=== PATIENT | female | born 1965 | race Caucasian/White ===

== ENCOUNTER → 2018-04-13 | Outpatient (CLI) | payer OTHER ==
[~2018-04-13] MED LIST: Advil200 M1 PO; DULO60; GABA100 PO; IRON; LOMAIRA8 MG PO; PARO30 PO
== END | disposition home or self-care (01) ==
LOC: LAB SHORT 13:57 → PLD 13:57
DX: D48.5 Neoplasm of uncertain behavior of skin (principal)
CPT/HCPCS: 88304

== ENCOUNTER 2020-10-24 18:00 | Emergency (ER) | payer OTHER ==
[~2020-10-24] VITALS: Ht 170.2 cm; Wt 113.4 kg
[2020-10-24] MEDS ORDERED: BENZ100A PO (18:53)
[2020-10-24] MEDS ORDERED: ONDA4ODT MM (18:53)
[2020-10-24] MEDS ORDERED: DECADRON4 M1 PO (18:53)
== END 2020-10-24 19:21 | disposition home or self-care (01) ==
LOC: ER 18:00
DX: U07.1 COVID-19 (principal); Z79.899 Other long term (current) drug therapy
CPT/HCPCS: 99285; A9270; J1100

== ENCOUNTER → 2021-01-01 | Outpatient (CLI) | payer OTHER ==
[~2021-01-01] MED LIST changes: +BENZ100A PO; +DECADRON4 M1 PO; +ONDA4ODT MM
== END | disposition home or self-care (01) ==
LOC: LAB 08:28 → LAB SHORT 08:28
DX: L72.11 Pilar cyst (principal)
CPT/HCPCS: 88304

== ENCOUNTER 2022-06-22 06:25 | Day surgery (SDC) | payer OTHER ==
[~2022-06-22] VITALS: Ht 170.2 cm; Wt 111.0 kg
[2022-06-22] VITALS (7 sets, daily range): BP systolic 116–150; BP diastolic 77–128
[~2022-06-22 06:25] MED LIST changes: +BUPR150ER PO; +DULO60 PO; +METF500 PO; +MULVITA PO
--- NOTE | 2022-06-22 09:01 | NUR ---
PT BACK TO RECOVERY ROOM VIA RECLINER POST PROCEDURE. AWAKE AND ALERT, DENIES ANY PAIN OR DISCOMFORT. RIGHT RADIAL SITE WITH TR BAND AND SPLINT IN PLACE. NO BLEEDING OR SWELLING NOTED AT SITE. VSS, CALL LIGHT IN REACH.
--- NOTE | 2022-06-22 09:28 | NUR ---
PT EATING BREAKFAST, VISITING WITH PARENTS. DENIES CURRENT NEEDS. VSS, CALL LIGHT IN REACH. RIGHT RADIAL SITE REMAINS CLEAN AND DRY, NO BLEEDING OR SWELLING.
--- NOTE | 2022-06-22 10:17 | NUR ---
RIGHT RADIAL TR BAND HAS BEEN FULLY DEFLATED, NO BLEEDING OR SWELLING NOTED FROM SITE. VSS, CALL LIGHT IN REACH. PT'S PARENTS REMAIN AT BEDSIDE.
--- NOTE | 2022-06-22 10:47 | NUR ---
IV DC'D, CATH INTACT. PT GIVEN DC INSTRUCTIONS, VERBALIZED UNDERSTANDING. TR BAND HAS BEEN REMOVED FROM RIGHT RADIAL SITE. CLOTH DOT DRESSING AND SPLINT IN PLACE. NO BLEEDING OR SWELLING NOTED AT SITE. VSS, PT OUT TO CAR VIA WHEELCHAIR.
== END 2022-06-22 10:40 | disposition home or self-care (01) ==
LOC: MHTC 06:25
DX: R07.89 Other chest pain (principal); R94.39 Abnormal result of other cardiovascular function study; R06.00 Dyspnea, unspecified; E66.9 Obesity, unspecified; R94.31 Abnormal electrocardiogram [ECG] [EKG]
CPT/HCPCS: 76937; 93308; 93321; 93454; 99152; A9270; C1769; C1887; C1894; J1644; J2250; J3010; J7030; J7050; Q9967